=== PATIENT | male | born 2000 | race Caucasian/White ===

== ENCOUNTER → 2020-06-02 | Outpatient (CLI) ==
[~2020-06-02] MED LIST: GLYC3350 PO
== END ==
LOC: M LABSMTC 10:43 → EDUNIT# 11:35
PROVIDERS: ATTEND Anesthesiology
DX: Z20.828 Contact with and (suspected) exposure to other viral communicable diseases (principal)
CPT/HCPCS: C9803; U0003

== ENCOUNTER 2020-06-07 09:23 | Day surgery (SDC) | payer OTHER ==
[~2020-06-07] VITALS: Ht 172.7 cm; Wt 55.8 kg
[~2020-06-07 09:23] MED LIST changes: +AMPICILLIN SOD/SULBACTAM SOD 3 GM in D5W MINI-BAG PLUS 100 ML IV ONE; +LIDOCAINE 1% MDV 20ML VIAL SQ PRN; +LR 1,000 ML IV ONE; +dexameTHASONE 4 MG/ML 1ML VIAL (J1100 PER 1MG) IV ONE
[2020-06-07] MEDS ORDERED: EMLA CREAM 5GM TUBE (LIDOCAINE/PRILOCAINE) As Ordered ONE (10:07)
[2020-06-07] MEDS ORDERED: LIDOCAINE 2% JELLY 5ML TUBE As Ordered ONE (12:17)
[2020-06-07] MEDS ORDERED: CHLORHEXIDINE GLUCONATE 0.12 % 15ML UDC (PERIDEX ORAL RINSE) As Ordered ONE (12:17)
[2020-06-07] MEDS ORDERED: LIDOCAINE 2% W/ EPINEPHRINE 1.7 ML DENTAL INJ As Ordered ONE (12:18)
[2020-06-07] MEDS ORDERED: LIDOCAINE 5% OINT 30 GM As Ordered ONE (12:19)
[2020-06-07] MEDS ORDERED: ROCURONIUM BROMIDE 50 MG/5 ML VIAL As Ordered ONE (12:55)
[2020-06-07] MEDS ORDERED: MIDAZOLAM INJ 2MG/2ML VIAL (J2250 PER 1MG) As Ordered ONE (12:55)
[2020-06-07] MEDS ORDERED: fentaNYL 100 MCG/2 ML INJECTION (J3010) As Ordered ONE (12:55)
[2020-06-07] MEDS ORDERED: propofoL 200 MG/20 ML VIAL As Ordered ONE (12:55)
[2020-06-07] MEDS ORDERED: LIDOCAINE 2% 100MG/5ML SDV (FOR ANES.) As Ordered ONE (12:55)
[2020-06-07] MEDS ORDERED: ACETAMINOPHEN 1000MG 100ML IV BTL (OFIRMEV) (J0131 PER 10MG) As Ordered ONE (12:57)
[2020-06-07] MEDS ORDERED: ONDANSETRON 4MG/2ML VIAL As Ordered ONE (13:02)
[2020-06-07] MEDS ORDERED: SUGAMMADEX SODIUM 500 MG/5 ML VIAL (BRIDION) As Ordered ONE (13:04)
[2020-06-07] MEDS ORDERED: PHENYLephrine HCL 500 MCG/5 ML (100MCG/ML) SYRINGE (J2370) As Ordered ONE (13:29)
[2020-06-07] MEDS ORDERED: HYDROMORPHONE HCL 0.5 MG/ 0.5 ML SYRINGE (J1170 PER 1) IV PRN (14:30)
[2020-06-07] MEDS ORDERED: oxyCODONE 5MG TAB PO PRN (14:30)
[2020-06-07] MEDS ORDERED: ONDANSETRON 4MG/2ML VIAL IV PRN (14:30)
[2020-06-07] MEDS ORDERED: LR 1,000 ML IV SCH (14:30)
[2020-06-07] MEDS ORDERED: fentaNYL 100 MCG/2 ML INJECTION (J3010) IV PRN (14:30)
[2020-06-07 16:15] VITALS: BP 20/69
--- NOTE | 2020-06-08 14:04 | RO ---
DATE OF OPERATION: 06/07/2020 PREOPERATIVE DIAGNOSES: * Moderate to severe autism. * Grossly decayed and symptomatic teeth numbers 1, 16 and 31 as well as impacted and symptomatic tooth #32. POSTOPERATIVE DIAGNOSES: Status post moderate to severe autism and grossly decayed and symptomatic teeth numbers 1, 16 and 31 as well as impacted and symptomatic tooth #32. PROCEDURE PERFORMED: Surgical extraction of teeth number 1, 16, 31 and 32. SURGEON: Kamari Alston DMD, MD ANESTHESIA USED: General endotracheal anesthesia via nasal ray. SPECIMEN: Teeth for gross only. INDICATIONS FOR SURGERY: Mr. Herman is a pleasant 20-year-old male who was referred to my office by his dentist. He presented to my office with his mother complaining of pain stemming from the bottom right posterior molar as well as the upper wisdom teeth. Clinical exam reveals that he has moderate to severe autism and uses very little verbal communication. Clinical exam reveals gross caries of 1, 16 and 31; impacted teeth number 17 and 32. No signs or symptoms of infection noted. Panoramic x-ray reveals mesioangular full bony impacted 17 and 32 as well as partly erupted 1 and 16 and 31 with gross caries. A discussion was made with the patient and the mother regarding the treatment options and I have recommended to have the procedure performed in an operating room setting due to the complexity of the wisdom teeth as well as patient cooperation and comfort. All the risks, benefits and alternatives were explained to the patient, complete history and physical was obtained and was in the patient's chart, as well as an informed consent. DESCRIPTION OF THE PROCEDURE: Any last minute questions were addressed, informed consent was updated, and so was the history and physical. At that point, the patient was taken back to the operating room, was laid supine on the operating room table, ulnar nerve protectors were placed, noninvasive cardiac monitors were applied and at that point the patient underwent general anesthesia and was intubated with a nasal ray. He was then prepped and draped in the usual sterile fashion. Timeout procedure was performed to identify the patient, the procedure and any other precautions. Preoperative antibiotics and steroids were administered. At this point, a moist throat pack was inserted in the patient's oropharynx followed by the administration of 7 carpules of 2% lidocaine with 1:100,000 epinephrine as local infiltrations and blocks. Full-thickness flap was released. Site #31 extended proximally with a hockey-stick buccal extension. The flap was also extended medially into the sulcus of #30. Flap was reflected. Surgitome was then used to remove buccal bone from site #31 as well as impacted tooth #[address] to the furcation level. At this point, the teeth were sectioned in multiple segments and removed without any incident. Both sockets were then curetted and irrigated. The inferior alveolar nerve was not noted. The lingual cortices were intact. Sockets were then copiously irrigated and suctioned, and the flaps were then closed with 3-0 chromic sutures. Attention was then given to tooth numbers 1 and 16 where a full-thickness flap in a sulcular fashion was made. Sites numbers 1 and 16 extended into the mesial teeth number 2 and 15. A small amount of buccal bone was removed from sites number 1 and 16 and at this point the teeth were luxated and delivered without any incident. No signs of exposure were noted. Sockets were curetted and irrigated. Sockets were closed with 3-0 chromics. At this point, once all four teeth were removed, the oral cavity was irrigated and suctioned, the throat pack was removed, and the patient was then awakened from general anesthesia and taken back to the PACU once he was extubated. COMPLICATIONS: None. INTUBATION TIME OF SURGERY: ESTIMATED BLOOD LOSS: 20 mL. DRAINS: There were no drains placed. TAYE
== END 2020-06-07 16:31 | disposition home or self-care (01) ==
LOC: M SDC 09:23
PROVIDERS: ATTEND Dentist
DX: K02.9 Dental caries, unspecified (principal); K01.1 Impacted teeth; F84.0 Autistic disorder; F71 Moderate intellectual disabilities
CPT/HCPCS: 88300; D7210; D9223; J0131; J1100; J2250; J2370; J2405; J3010

== ENCOUNTER → 2023-05-09 | Day surgery (SDC) | payer OTHER ==
[~2023-05-09] VITALS: Ht 167.6 cm; Wt 55.4 kg
[~2023-05-09] MED LIST changes: +CHLORHEXIDINE GLUCONATE 0.12 % 15ML UDC (PERIDEX ORAL RINSE) As Ordered ONE; +KETOROLAC 60MG 2ML VIAL As Ordered ONE; -LIDOCAINE 1% MDV 20ML VIAL SQ PRN; +LIDOCAINE 2% 100MG/5ML SDV (FOR ANES.) As Ordered ONE; +LIDOCAINE 2% W/ EPINEPHRINE 1.7 ML DENTAL INJ As Ordered ONE; -LR 1,000 ML IV ONE; +LR 1,000 ML IV SCH; +MIDAZOLAM INJ 2MG/2ML VIAL As Ordered ONE; +ONDANSETRON 4MG 2ML VIAL As Ordered ONE; +ONDANSETRON 4MG 2ML VIAL IV PRN; +POLY17PO10 PO; +ROCURONIUM BROMIDE 50MG/5ML VIAL As Ordered ONE; +SUGAMMADEX SODIUM 500 MG/5 ML VIAL (BRIDION) As Ordered ONE; -dexameTHASONE 4 MG/ML 1ML VIAL (J1100 PER 1MG) IV ONE; +dexmedeTOMIDine (4MCG/ML)200MCG/50ML BTL (PRECEDEX) As Ordered ONE; +fentaNYL 100 MCG/2 ML INJECTION As Ordered ONE; +fentaNYL 100 MCG/2 ML INJECTION IV PRN; +oxyCODONE 5MG TAB PO PRN; +propofoL 200 MG/20 ML VIAL As Ordered ONE
[2023-05-09 16:35] VITALS: BP 109/70; TEMP 97.9; O2SAT 97
== END | disposition home or self-care (01) ==
LOC: M SDC 10:57
PROVIDERS: ATTEND Dentist
DX: K02.9 Dental caries, unspecified (principal); F84.0 Autistic disorder; Z79.899 Other long term (current) drug therapy
CPT/HCPCS: 88300; D7210; D9223; J0295; J1100; J1885; J2250; J2405; J3010